=== PATIENT | male | born 1980 | race Caucasian/White ===

== ENCOUNTER 2017-09-22 13:06 | Emergency (ER) | payer OTHER ==
[2017-09-22] MEDS: HYDROCODONE/APAP (5/325) TAB PO (13:40)
== END 2017-09-22 15:13 | disposition home or self-care (01) ==
LOC: FTE 13:06
DX: S62.514A Nondisplaced fracture of proximal phalanx of right thumb, initial encounter for closed fracture (principal); S63.610A Unspecified sprain of right index finger, initial encounter; W21.07XA Struck by softball, initial encounter; Y92.9 Unspecified place or not applicable
CPT/HCPCS: 29125; 73130-RT; 99283-25

== ENCOUNTER 2017-10-24 15:06 | Day surgery (SDC) | payer OTHER ==
[~2017-10-24 15:06] MED LIST: CEFAZOLIN 2 GM/50 ML (PMX) 50 ML IVPB
[2017-10-24] MEDS ORDERED: BUPIVACAINE 0.5% (SDV) 30 ML INJ (18:47)
[2017-10-24] MEDS ORDERED: LIDOCAINE 1% (MPF) 30 ML INJ (18:47)
[2017-10-26] MEDS ORDERED: ROPIVACAINE 0.5 % 30 ML VIAL (07:50)
[2017-10-26] MEDS ORDERED: MIDAZOLAM 1 MG/ML 2 ML INJ (07:50)
[2017-10-26] MEDS ORDERED: LIDOCAINE 2% (SDV) 5 ML INJ (07:50)
[2017-10-26] MEDS ORDERED: ROCURONIUM 50 MG INJ (08:26)
[2017-10-26] MEDS ORDERED: SUGAMMADEX SODIUM 200 MG/2 ML VIAL IV (08:26)
[2017-10-26] MEDS ORDERED: SUCCINYLCHOLINE CHLORIDE 100 MG/5 ML SYG IV (08:26)
[2017-10-26] MEDS ORDERED: PROPOFOL 20 ML (08:26)
[2017-10-26] MEDS ORDERED: CEFAZOLIN 1 GM INJ (08:26)
== END 2017-10-24 19:00 | disposition home or self-care (01) ==
LOC: SDS 15:06
DX: S62.511D Displaced fracture of proximal phalanx of right thumb, subsequent encounter for fracture with routine healing (principal); X58.XXXD Exposure to other specified factors, subsequent encounter; Z53.9 Procedure and treatment not carried out, unspecified reason

== ENCOUNTER 2017-10-26 06:55 | Day surgery (SDC) | payer OTHER ==
[2017-10-26] MEDS ORDERED: LIDOCAINE 1% (MPF) 30 ML INJ (07:08)
[2017-10-26] MEDS ORDERED: BUPIVACAINE 0.5% (SDV) 30 ML INJ (07:08)
[2017-10-26] MEDS: POLYMYXIN/BACITRACIN 1L IRRIG IRR (08:20)
[2017-10-26] MEDS ORDERED: ALBUTEROL 0.083% (NEB) 2.5 MG/3 ML AMP HHN (08:30)
[2017-10-26] MEDS ORDERED: METOCLOPRAMIDE 10 MG INJ IV (08:30)
[2017-10-26] MEDS ORDERED: FENTAnyl 50 MCG/ML VIAL IV ×2 (08:30)
[2017-10-26] MEDS ORDERED: HYDROmorphONE (0.2 MG/ML) 10ML SYG IV ×3 (08:30)
[2017-10-26] MEDS ORDERED: MEPERIDINE 25 MG INJ IV (08:30)
[2017-10-26] MEDS ORDERED: DIPHENHYDRAMINE 50 MG INJ IV (08:30)
[2017-10-26] MEDS ORDERED: ONDANSETRON 4 MG INJ IV (08:30)
[2017-10-26] MEDS ORDERED: POLYMYXIN/BACITRACIN 1L IRRIG (09:06)
== END 2017-10-26 10:48 | disposition home or self-care (01) ==
LOC: SUR 06:55
DX: S62.511A Displaced fracture of proximal phalanx of right thumb, initial encounter for closed fracture (principal); X58.XXXA Exposure to other specified factors, initial encounter
CPT/HCPCS: 26742; 73130-RT

== ENCOUNTER 2019-03-24 09:44 | Emergency (ER) | payer OTHER ==
[2019-03-24] MEDS: SOD CHLORIDE 0.9% 1,000 ML IV (10:23)
[2019-03-24] MEDS: morphine 4 MG/ML VIAL IV (10:23)
[2019-03-24] MEDS: ONDANSETRON 4 MG INJ IV (10:23)
[2019-03-24 10:29] LABS: ADD MAN DIFF? NO
[2019-03-24 10:40] LABS: ADD UMIC NO; UR ASCORBIC ACID NEGATIVE (NEGATIVE); UR BILIRUBIN (Dip) NEGATIVE (NEGATIVE); UR BLOOD (Dip) NEGATIVE (NEGATIVE); UR CLARITY CLEAR (CLEAR); UR COLOR YELLOW (YELLOW); UR GLUCOSE (Dip) NEGATIVE (NEGATIVE); UR KETONES (Dip) NEGATIVE (NEGATIVE); UR LEUKOCYTE ESTERASE (Dip) NEGATIVE Leu/ul (NEGATIVE); UR NITRITE (Dip) NEGATIVE (NEGATIVE); UR SPECIFIC GRAVITY (Dip) 1.023 (1.003-1.030); UR TOTAL PROTEIN (Dip) NEGATIVE (NEGATIVE); UR UROBILINOGEN (Dip) NEGATIVE (NEGATIVE)
[2019-03-24 10:45] LABS: WHITE BLOOD COUNT 7.9 10^3/ul (4.8-10.8)
[2019-03-24 10:45] LABS: BASOPHIL # 0.1 10^3/ul (0.0-0.1); EOSINOPHILS # 0.2 10^3/ul (0.0-0.5); EOSINOPHILS % 2.9 % (0.0-7.0); HEMATOCRIT 48.5 % (42.0-52.0); HEMOGLOBIN 16.4 g/dl (14.0-18.0); LYMPHOCYTES % 38.5 % (15.0-51.0); MEAN CORPUSCULAR HEMOGLOBIN 30.7 pg (29.0-33.0); MEAN CORPUSCULAR HGB CONC 33.8 g/dl (32.0-37.0); MEAN CORPUSCULAR VOLUME 90.8 fl (82.0-101.0); MEAN PLATELET VOLUME 8.7 fl (7.4-10.4); MONOCYTE # 0.7 10^3/ul (0.3-0.9); MONOCYTES % 8.4 % (0.0-11.0); NEUTROPHIL # 3.8 10^3/ul (1.6-7.5); NEUTROPHILS % 48.7 % (39.0-77.0); PLATELET COUNT 505 10^3/UL (140-415); RED BLOOD COUNT 5.34 10^6/ul (4.70-6.10); RED CELL DISTRIBUTION WIDTH 12.8 % (11.5-14.5)
[2019-03-24 10:51] LABS: ALANINE AMINOTRANSFERASE 99 IU/L (13-69); ALBUMIN 4.6 g/dl (3.3-4.9); ALBUMIN/GLOBULIN RATIO 1.15; ALKALINE PHOSPHATASE 83 IU/L (42-121); ANION GAP 11 (5-13); ASPARTATE AMINO TRANSFERASE 51 IU/L (15-46); BILIRUBIN,INDIRECT 0.5 mg/dl (0-1.1); BILIRUBIN,TOTAL 0.5 mg/dl (0.2-1.3); BLOOD UREA NITROGEN 14 mg/dl (7-20); CALCIUM 9.9 mg/dl (8.4-10.2); CARBON DIOXIDE 26 mmol/L (21-31); CHLORIDE 101 mmol/L (97-110); CREATININE 0.88 mg/dl (0.61-1.24); Estimated GFR > 60 mL/min (>60); GLUCOSE 112 mg/dl (70-220); LIPASE 182 U/L (23-300); POTASSIUM 4.3 mmol/L (3.5-5.1); SODIUM 138 mmol/L (135-144); TOTAL PROTEIN 8.6 g/dl (6.1-8.1)
== END 2019-03-24 11:20 | disposition home or self-care (01) ==
LOC: FTE 11:20
DX: R10.32 Left lower quadrant pain (principal); Z87.891 Personal history of nicotine dependence
CPT/HCPCS: 36415; 76856; 80053; 81003; 83690; 85025; 96361; 96374; 96375; 99285-25